=== PATIENT | female | born 1990 | race Two or more races ===

== ENCOUNTER 2020-09-09 19:32 | Observation (INO) | payer SELFPAY ==
[2020-09-09] MEDS ORDERED: IV RINGERS,LACTATED 1000ML 1,000 ML IV SCH (19:45)
[2020-09-09 20:11] LABS: BILIRUBIN,URINE NEGATIVE (NEG); CLARITY,URINE TURBID; COLOR,URINE YELLOW; NITRITE,URINE NEGATIVE (NEG); PROTEIN,URINE NEGATIVE (NEG-TRACE); UROBILINOGEN,URINE 0.2 mg/dL (0.2 mg/dL)
[2020-09-09 20:23] LABS: AMORPHOUS SEDIMENT,UR PRESENT /HPF
[2020-09-09 20:24] LABS: BACTERIA,URINE FEW /HPF (0-FEW); RBC,URINE 0 /HPF (0-2)
== END 2020-09-09 22:00 | disposition home or self-care (01) ==
LOC: 3 SO LND 19:32
PROVIDERS: ADMIT Obstetrics & Gynecology; ATTEND Obstetrics & Gynecology
DX: O26.892 Other specified pregnancy related conditions, second trimester (principal); R10.30 Lower abdominal pain, unspecified; Z3A.22 22 weeks gestation of pregnancy; W19.XXXA Unspecified fall, initial encounter; Y93.89 Activity, other specified; Y92.89 Other specified places as the place of occurrence of the external cause; Y99.8 Other external cause status
CPT/HCPCS: 59025; 81001; G0378; G0379